=== PATIENT | female | born 1990 ===

== ENCOUNTER 2017-04-30 12:45 | Emergency (ER) | payer OTHER ==
[2017-04-30 13:07] VITALS: BMI 29.7
[2017-04-30 13:15] VITALS: BP 110/76; PULSE 74; RESP 17; TEMP 98; O2SAT 98
[2017-04-30 14:27] LABS: HCG,QUALITATIVE URINE NEGATIVE (NEGATIVE)
[2017-04-30 14:34] LABS: SQUAMOUS EPITHIAL 4 /hpf (0-5); URINE BILIRUBIN NEGATIVE (NEGATIVE); URINE BLOOD NEGATIVE (NEGATIVE); URINE CLARITY Clear (Clear); URINE COLOR Yellow (YELLOW); URINE GLUCOSE (UA) NORMAL (Normal); URINE LEUKOCYTE ESTERASE TRACE Leu/uL (Negative); URINE NITRATE NEGATIVE (NEGATIVE); URINE PROTEIN NEGATIVE (NEGATIVE); URINE UROBILINOGEN NORMAL mg/dL (0.2-1.0)
--- NOTE | 2017-04-30 14:51 | C.PDOC ---
History Of Present Illness 26 y/o female presents to the ED with complaints of right sided back pain x1 week. Pain is worse with movement. Denies weakness, numbness, urinary or bowel incontinence, abdominal pain, paraesthesias, urinary symptoms or any other complaints. No pain medications taken at home. Time Seen by Provider: 04/30/17 13:52 Chief Complaint (Nursing): Back Pain History Per: Patient History/Exam Limitations: no limitations Onset/Duration Of Symptoms: Days Current Symptoms Are (Timing): Still Present Quality Of Discomfort: "Pain" Severity: Moderate Previous Symptoms: None Associated Symptoms: None Exacerbating Factor(s): Movement Recent travel outside of the [place]: No Past Medical History Reviewed: Historical Data, Nursing Documentation, Vital Signs Vital Signs: Last Vital Signs Temp 98.0 F 04/30/17 13:08 Pulse 74 04/30/17 13:08 Resp 17 04/30/17 13:08 BP 110/76 04/30/17 13:08 Pulse Ox 98 04/30/17 16:26 Surgical History: Tonsillectomy - [facility] Procedures DELIVERY OF PRODUCTS OF CONCEPTION, EXTERNAL APPROACH (01/18/16) DIVISION OF FEMALE PERINEUM, EXTERNAL APPROACH (01/18/16) DRAINAGE OF AMNIOTIC FL, THERAP FROM POC, VIA OPENING (01/18/16) Family History: States: Unknown Family Hx - Social History Hx Tobacco Use: No Hx Alcohol Use: Yes Hx Substance Use: No - Immunization History Hx Tetanus Toxoid Vaccination: No Hx Influenza Vaccination: No Hx Pneumococcal Vaccination: No Review Of Systems Except As Marked, All Systems Reviewed And Found Negative. Gastrointestinal: Negative for: Abdominal Pain Genitourinary: Negative for: Dysuria, Frequency, Incontinence, Hematuria Musculoskeletal: Positive for: Back Pain Neurological: Negative for: Weakness, Numbness Physical Exam - Physical Exam Appears: Non-toxic, No Acute Distress Skin: Warm, Dry, No Rash Head: Atraumatic, Normacephalic Eye(s): bilateral: Normal Inspection, EOMI Nose: Normal Oral Mucosa: Moist Neck: Normal, Normal ROM, Supple Chest: Symmetrical Cardiovascular: Rhythm Regular, No Murmur Respiratory: Normal Breath Sounds, No Rales, No Rhonchi, No Wheezing Gastrointestinal/Abdominal: Normal Exam, Soft, No Tenderness Back: No CVA Tenderness, No Vertebral Tenderness, Paraspinal Tenderness (right lumbar) Extremity: Normal ROM Extremity: Bilateral: Atraumatic, Normal Color And Temperature, Normal ROM Neurological/Psych: Oriented x3, Normal Speech, Normal Cognition, Normal Motor, Normal Sensation Gait: Steady ED Course And Treatment O2 Sat by Pulse Oximetry: 98 (room air) Pulse Ox Interpretation: Normal Progress Note: Plan: motrin, XR L spine, UA. Pt left prior to XR and re- evaluation. Disposition - Disposition Disposition: ELOPEMENT - ER ONLY Disposition Time: 15:08 Condition: STABLE Additional Instructions: Vaya a davis mdico o la clnica en 1-3 blas sin falta, para mas evaluacin. [place] los medicamentos chago indicado. Volver a la carlos de emergencia en cualquier momento si los sntomas persisten o empeoran. Prescriptions: Naproxen [Naprosyn] 1 tab PO BID PRN #20 tab PRN Reason: Pain Instructions: Acute Low Back Pain (ED) Print Language: NORTH KOREAN - Clinical Impression Clinical Impression: Low back pain - PA / [employer] SAL[employer] REPRESENTATIVE / Resident Statement MD/DO has reviewed & agrees with the documentation as recorded. - Scribe Statement The provider has reviewed the documentation as recorded by the Scribe Martin oneil All medical record entries made by the Scribyessica were at my direction and personally dictated by me. I have reviewed the chart and agree that the record accurately reflects my personal performance of the history, physical exam, medical decision making, and the department course for this patient. I have also personally directed, reviewed, and agree with the discharge instructions and disposition.
== END 2017-04-30 13:52 | disposition left against medical advice (07) ==
LOC: C.ER 12:45
DX: M54.5 Low back pain (principal)

== ENCOUNTER 2018-01-21 18:14 | Emergency (ER) | payer OTHER ==
[2018-01-21 18:14] VITALS: BMI 29.7
[2018-01-21] MEDS ORDERED: Sodium Chloride 0.9% 1,000 ML IV ONE (19:09)
[2018-01-21] MEDS ORDERED: Sucralfate 1 gm/10 ml Oral Susp UD PO STA (19:10)
[2018-01-21] MEDS ORDERED: Iohexol 240 (50 ml) PO ONE (19:11)
--- NOTE | 2018-01-21 19:12 | C.PDOC ---
History Of Present Illness 27 year old female presents to the ED complaining of abdominal pain that began a few days ago. Pain is localized to the upper quadrant area. Associated with nausea and vomiting since yesterday. She denies any fever, chills, diarrhea, or dysuria. Time Seen by Provider: 01/21/18 19:02 Chief Complaint (Nursing): Abdominal Pain History Per: Patient History/Exam Limitations: no limitations Onset/Duration Of Symptoms: Days Current Symptoms Are (Timing): Still Present Location Of Pain/Discomfort: RUQ, LUQ Past Medical History Reviewed: Historical Data, Nursing Documentation, Vital Signs Vital Signs: Last Vital Signs Temp 98.0 F 01/21/18 20:26 Pulse 55 L 01/21/18 20:26 Resp 16 01/21/18 20:26 BP 121/79 01/21/18 20:26 Pulse Ox 100 01/21/18 22:00 - Medical History Other PMH: Sinusitis Surgical History: Tonsillectomy - [facility] Procedures DELIVERY OF PRODUCTS OF CONCEPTION, EXTERNAL APPROACH (01/18/16) DIVISION OF FEMALE PERINEUM, EXTERNAL APPROACH (01/18/16) DRAINAGE OF AMNIOTIC FL, THERAP FROM POC, VIA OPENING (01/18/16) Family History: States: Unknown Family Hx - Social History Hx Tobacco Use: No Hx Alcohol Use: Yes Hx Substance Use: No - Immunization History Hx Tetanus Toxoid Vaccination: No Hx Influenza Vaccination: No Hx Pneumococcal Vaccination: No Review Of Systems Except As Marked, All Systems Reviewed And Found Negative. Constitutional: Negative for: Fever, Chills Gastrointestinal: Positive for: Nausea, Vomiting, Abdominal Pain. Negative for : Diarrhea Genitourinary: Negative for: Dysuria Physical Exam - Physical Exam Appears: No Acute Distress Skin: Normal Color, Warm, Dry Head: Atraumatic, Normacephalic Eye(s): bilateral: Normal Inspection, PERRL, EOMI Nose: Normal Oral Mucosa: Moist Neck: Normal ROM, Supple Chest: Symmetrical Cardiovascular: Rhythm Regular, No Murmur Respiratory: Normal Breath Sounds, No Accessory Muscle Use, No Rhonchi, No Wheezing Gastrointestinal/Abdominal: Soft, Tenderness (To the epigastric area and bilateral upper quadrants, no lower quadrant tenderness), No Guarding, No Rebound Back: Normal Inspection, No CVA Tenderness, No Vertebral Tenderness Extremity: Bilateral: Atraumatic, Normal Color And Temperature, Normal ROM Neurological/Psych: Oriented x3, Normal Speech Gait: Steady ED Course And Treatment - Laboratory Results Result Diagrams: 01/21/18 19:20 01/21/18 19:20 O2 Sat by Pulse Oximetry: 100 (RA) Pulse Ox Interpretation: Normal - CT Scan/US CT abdomen/pelvis Other Rad Studies (CT/US): Read By Radiologist, Radiology Report Reviewed CT/US Interpretation: FINDINGS: Lung bases: Unremarkable. No mass. No consolidation. ABDOMEN: Liver: Unremarkable. No mass. Gallbladder and bile ducts: Unremarkable. No calcified stones. No ductal dilation. Pancreas: Unremarkable. No mass. No ductal dilation. Spleen: Unremarkable. No splenomegaly. Adrenals: Unremarkable. No mass. Kidneys and ureters: Unremarkable. No solid mass. No hydronephrosis. Stomach and bowel: Unremarkable. No obstruction. No mucosal thickening. Appendix: Normal appendix. PELVIS: Bladder: Urinary bladder is mildly distended. Reproductive : IUD in uterus. Recently ruptured left ovarian cyst or follicle. ABDOMEN and PELVIS: Intraperitoneal space: Unremarkable. No free air. No significant fluid collection. Bones/joints: No acute fracture. No dislocation. Soft tissues: Unremarkable. Vasculature: Unremarkable. No abdominal aortic aneurysm. Lymph nodes: Unremarkable. No enlarged lymph nodes. IMPRESSION: No acute findings. Thank you for allowing us to participate in the care of your patient. Dictated and Authenticated by: Juvencio Martines MD. 01/21/2018 9:26 PM Eastern Time ([place] & [place]) Medical Decision Making Medical Decision Making: Impression: 27 y/o female with abdominal pain, nausea, and vomiting Time: 19:09 Initial Plan: * CMP * CBC * Lipase * Urinalysis * HCG, qualitative urine * NSS IV fluids * Zofran 4 mg IV * Pepcid 20 mg IV * Carafate 1 gm PO * Reevaluation after meds given * CT Abdomen/Pelvis with PO & IV contrast 21:50 Labs reviewed and are grossly normal. On reevaluation, patient reports improvement in symptoms and is stable for discharge home. Will d/c with prescriptions for Pepcid and Carafate. Instructed pt to follow up with PMD Disposition Counseled Patient/Family Regarding: Studies Performed, Diagnosis - Disposition Referrals: [facility] [Outside] Disposition: HOME/ ROUTINE Disposition Time: 21:50 Condition: STABLE Prescriptions: Famotidine [Pepcid] 20 mg PO BID #30 tab Sucralfate [Carafate] 1 gm PO BID #20 tab Instructions: Acute Abdomen (Belly Pain), Adult (DC), Gastritis (DC), Ulcer and Gastritis Diet Forms: [facility] (Setswana), Gen Discharge Inst Setswana Print Language: ARGENTINE - POA Present On Arrival: None - Clinical Impression Clinical Impression: Abdominal pain, Gastroduodenitis - Scribe Statement The provider has reviewed the documentation as recorded by the Scribe (Kadi Soto) Provider Attestation: All medical record entries made by the Scribe were at my direction and personally dictated by me. I have reviewed the chart and agree that the record accurately reflects my personal performance of the history, physical exam, medical decision making, and the department course for this patient. I have also personally directed, reviewed, and agree with the discharge instructions and disposition.
--- NOTE | 2018-01-21 19:12 | C.PDOC ---
Chief Complaint (Nursing): Abdominal Pain Past Medical History Vital Signs: Last Vital Signs Temp 97.9 F 01/21/18 18:31 Pulse 65 01/21/18 18:31 Resp 18 01/21/18 18:31 BP 127/86 01/21/18 18:31 Pulse Ox 100 01/21/18 18:31 Surgical History: Tonsillectomy - [facility] Procedures DELIVERY OF PRODUCTS OF CONCEPTION, EXTERNAL APPROACH (01/18/16) DIVISION OF FEMALE PERINEUM, EXTERNAL APPROACH (01/18/16) DRAINAGE OF AMNIOTIC FL, THERAP FROM POC, VIA OPENING (01/18/16) Family History: States: Unknown Family Hx - Social History Hx Tobacco Use: No Hx Alcohol Use: Yes Hx Substance Use: No - Immunization History Hx Tetanus Toxoid Vaccination: No Hx Influenza Vaccination: No Hx Pneumococcal Vaccination: No ED Course And Treatment O2 Sat by Pulse Oximetry: 100 Disposition - Disposition
[2018-01-21] MEDS ORDERED: Sodium Chloride 0.9% 1,000 ML ONE (19:21)
[2018-01-21] MEDS ORDERED: Iohexol 240 (50 ml) ONE (19:22)
[2018-01-21] MEDS ORDERED: Sucralfate 1 gm/10 ml Oral Susp UD ONE (19:22)
[2018-01-21 19:23] LABS: BASO % 0.7 % (0.0-2.0); EOS # 0.1 K/uL (0.0-0.7); EOS % 2.6 % (0.0-4.0); LYMPH % 42.5 % (20.0-40.0); MEAN CELL VOLUME 92.5 fL (81.0-99.0); MEAN CORPUSCULAR HEMOGLOBIN 31.8 pg (27.0-31.0); MEAN CORPUSCULAR HGB CONC 34.4 g/dL (33.0-37.0); MEAN PLATELET VOLUME 9.6 fL (7.2-11.7); MONO # 0.4 K/uL (0.0-0.8); MONO % 8.3 % (0.0-10.0); NEUT # 2.1 K/uL (1.8-7.0); NEUT % 45.9 % (50.0-75.0); NRBC % 0.1 % (0.0-2.0); RBC 4.09 Mil/uL (3.80-5.20); RED CELL DISTRIBUTION WIDTH 14.7 % (11.5-14.5); WHITE BLOOD COUNT 4.6 K/uL (4.8-10.8)
[2018-01-21 19:35] LABS: ALBUMIN 3.9 g/dL (3.5-5.0); CALCIUM 8.9 mg/dl (8.6-10.4); GFR AFRICAN-AMERICAN > 60; GFR NON-AFRICAN AMERICAN > 60; LIPASE 66 U/L (23-300)
[2018-01-21 19:44] LABS: ALT/SGPT 17 U/L (9-52); AST/SGOT 24 U/L (14-36); BLOOD UREA NITROGEN 13 mg/dL (7-17)
[2018-01-21 20:06] LABS: HCG,QUALITATIVE URINE NEGATIVE (NEGATIVE)
[2018-01-21 20:12] LABS: SQUAMOUS EPITHIAL 11 /hpf (0-5); URINE BILIRUBIN NEGATIVE (NEGATIVE); URINE BLOOD NEGATIVE (NEGATIVE); URINE CLARITY Hazy (Clear); URINE COLOR Straw (YELLOW); URINE GLUCOSE (UA) NORMAL (Normal); URINE LEUKOCYTE ESTERASE TRACE Leu/uL (Negative); URINE PROTEIN NEGATIVE (NEGATIVE); URINE UROBILINOGEN NORMAL mg/dL (0.2-1.0)
[2018-01-21] MEDS ORDERED: Iohexol 300 100 ML IJ ONE (20:23)
[2018-01-21 22:05] VITALS: BP 143/77; PULSE 62; RESP 20; TEMP 98.2; O2SAT 98
--- NOTE | 2018-01-22 09:51 | CT ---
PROCEDURE: CT Abdomen and Pelvis with intravenous contrast HISTORY: Abdominal pain COMPARISON: None. TECHNIQUE: Multiple contiguous axial images were performed through the abdomen and pelvis with intravenous contrast. Subsequently, sagittal and coronal reformatted images were obtained. Contrast Dose: 100 cc of Omnipaque 300 intravenous contrast was administered. Radiation dose: Total exam DLP = 526 mGy-cm. This CT exam was performed using one or more of the following dose reduction techniques: Automated exposure control, adjustment of the mA and/or kV according to patient size, and/or use of iterative reconstruction technique. FINDINGS: LOWER THORAX: Unremarkable. LIVER: Unremarkable. No gross lesion or ductal dilatation. GALLBLADDER AND BILE DUCTS: Unremarkable. PANCREAS: Unremarkable. No gross lesion or ductal dilatation. SPLEEN: Unremarkable. ADRENALS: Unremarkable. No mass. KIDNEYS AND URETERS: Unremarkable. No hydronephrosis. No solid mass. VASCULATURE: Unremarkable. No aortic aneurysm. BOWEL: Unremarkable. No obstruction. No gross mural thickening. Under distended and or mildly thickened rectum, likely reactive. APPENDIX: Unremarkable. Normal appendix. PERITONEUM: Unremarkable. No free fluid. No free air. LYMPH NODES: Unremarkable. No enlarged lymph nodes. BLADDER: Urinary bladder is mildly distended. REPRODUCTIVE: Intrauterine device in the uterus. Recently ruptured left ovarian cyst or follicle. BONES: No acute fracture. OTHER FINDINGS: None. IMPRESSION: Recently ruptured left ovarian cyst or follicle. Urinary bladder is mildly distended. Under distended and or mildly thickened rectum, likely reactive. Clinical correlation. These findings were preliminarily reported at 9:26 p.m. on 01/21/[address] Juvencio Martines from [facility].
== END 2018-01-21 22:11 | disposition home or self-care (01) ==
LOC: C.ER 18:14 → MERGE 18:14 → C.ER 22:11
DX: K29.90 Gastroduodenitis, unspecified, without bleeding (principal); R10.9 Unspecified abdominal pain
CPT/HCPCS: 74177; 80053; 81001; 83690; 84703; 85025; 96361; 96374; 96375; 99285; J2405; J7040; Q9966; Q9967

== ENCOUNTER 2018-01-22 19:45 | Emergency (ER) | payer OTHER ==
[2018-01-22 19:45] VITALS: BMI 29.7
[2018-01-22 20:03] VITALS: RESP 20
[2018-01-22] MEDS ORDERED: Magnesium Citrate Oral SOL (300 ml) PO ONE (21:15)
--- NOTE | 2018-01-22 21:15 | C.PDOC ---
History Of Present Illness 27 year old female presents to the ED for evaluation of abdominal pain which began a few days ago. Patient was evaluated in this ED yesterday for same complaint and had unremarkable labs and CT A/P. Patient states she is [place] and her diet consists of rice, beans, yucca and platanos. Patient has not taken any laxatives. She denies fever, chills, nausea, vomiting, diarrhea. Time Seen by Provider: 01/22/18 20:38 Chief Complaint (Nursing): Abdominal Pain History Per: Patient History/Exam Limitations: no limitations Onset/Duration Of Symptoms: Days Current Symptoms Are (Timing): Still Present Location Of Pain/Discomfort: Diffuse Quality Of Discomfort: "Pain" Associated Symptoms: denies: Fever, Chills, Nausea, Vomiting, Diarrhea Additional History Per: Patient Abnormal Vaginal Bleeding: No Past Medical History Reviewed: Historical Data, Nursing Documentation, Vital Signs Vital Signs: Last Vital Signs Temp 98 F 01/22/18 21:27 Pulse 61 01/22/18 21:27 Resp 20 01/22/18 21:27 BP 128/86 01/22/18 21:27 Pulse Ox 100 01/22/18 22:04 - Medical History PMH: Gastritis Surgical History: Tonsillectomy - [facility] Procedures DELIVERY OF PRODUCTS OF CONCEPTION, EXTERNAL APPROACH (01/18/16) DIVISION OF FEMALE PERINEUM, EXTERNAL APPROACH (01/18/16) DRAINAGE OF AMNIOTIC FL, THERAP FROM POC, VIA OPENING (01/18/16) Family History: States: Unknown Family Hx - Social History Hx Tobacco Use: No Hx Alcohol Use: Yes Hx Substance Use: No - Immunization History Hx Tetanus Toxoid Vaccination: No Hx Influenza Vaccination: No Hx Pneumococcal Vaccination: No Review Of Systems Constitutional: Negative for: Fever, Chills Gastrointestinal: Positive for: Abdominal Pain. Negative for: Nausea, Vomiting , Diarrhea Physical Exam - Physical Exam Appears: Non-toxic, No Acute Distress Skin: Normal Color, Warm, Dry Head: Atraumatic, Normacephalic Eye(s): bilateral: Normal Inspection Oral Mucosa: Moist Neck: Supple Chest: Symmetrical, No Deformity, No Tenderness Cardiovascular: Rhythm Regular, No Murmur Respiratory: Normal Breath Sounds, No Rales, No Rhonchi, No Wheezing Gastrointestinal/Abdominal: Soft, No Tenderness, No Guarding, No Rebound, Other (dull to percussion in right and left quadrants ) Extremity: Normal ROM, Capillary Refill (less than 2 seconds ) Neurological/Psych: Oriented x3, Normal Speech, Normal Cognition ED Course And Treatment O2 Sat by Pulse Oximetry: 100 (on RA) Pulse Ox Interpretation: Normal Progress Note: Magnesium Citrate PO given. Medical Decision Making Medical Decision Making: constipation LOW susp of gastritis/PUD [place] diet rich in platanos, yucca, rice and beans. dull to percussion c/w constipation and colicky pain defer repeat w/u as done yesterday as "normal" Disposition Doctor Will See Patient In The: Office Counseled Patient/Family Regarding: Studies Performed, Diagnosis - Disposition Referrals: Casey Arvizu MD [Staff Provider] - Disposition: HOME/ ROUTINE Disposition Time: 21:14 Condition: GOOD Additional Instructions: debra botella de Citrato de MAgnesio- purgante- para evacuar 2-3 veces repita chago necessario cambios de dieta para evitar comidas que provocan estrenemiento debra mas agua Sigue con Dr. Delaney chago necessario. Instructions: Constipation, Adult (DC) Forms: [email or web address] (Romansh) Print Language: NAMIBIAN - Clinical Impression Clinical Impression: Colicky periumbilical abdominal pain - Scribe Statement The provider has reviewed the documentation as recorded by the Scribe (Cherie Dumont) Provider Attestation: All medical record entries made by the Scribe were at my direction and personally dictated by me. I have reviewed the chart and agree that the record accurately reflects my personal performance of the history, physical exam, medical decision making, and the department course for this patient. I have also personally directed, reviewed, and agree with the discharge instructions and disposition.
[2018-01-22] MEDS ORDERED: Magnesium Citrate Oral SOL (300 ml) ONE (21:16)
[2018-01-22 21:28] VITALS: BP 128/86; PULSE 61; TEMP 98
[2018-01-22 21:58] VITALS: O2SAT 100
== END 2018-01-22 21:33 | disposition home or self-care (01) ==
LOC: MERGE 19:45 → C.ER 19:45
DX: R10.33 Periumbilical pain (principal)